=== PATIENT | male | born 1935 | race Caucasian/White ===

== ENCOUNTER → 2021-03-10 13:41 | Outpatient (CLI) | payer MEDICARE, SELFPAY ==
--- NOTE | 2021-03-10 15:09 | NEURO ---
NCS and/or EMG Patient Report Ordering Doctor: Brook Gibson DATE OF SERVICE: 03/10/21 Indication: Tingling and burning intermittently in the fingers of the right hand. Evaluate for entrapment neuropathy. Findings: Nerve conduction studies were performed in the right upper extremity. The right median motor study recording the abductor pollicis brevis showed a normal amplitude, normal distal latency and normal conduction velocity. The right ulnar motor study recording the abductor digiti minimi showed a normal amplitude, normal distal latency and normal conduction velocity. No conduction block or focal slowing was present across the elbow. The right median sensory response recording digit two showed a normal amplitude, latency and conduction velocity. The right ulnar sensory response recording digit five showed a normal amplitude, latency and conduction velocity. The right radial sensory response recording over the extensor snuff box showed a normal amplitude, latency and conduction velocity. Right median-ulnar lumbrical / interosseous motor latencies showed a normal median latency compared to the ulnar. Needle EMG of the right upper extremity muscles was performed. No denervation was seen in any muscle. Motor units in the right abductor pollicis brevis were slightly large amplitude and long duration with normal recuitment. All other motor unit morphology, activation and recruitment patterns were normal. Impression: This is an abnormal study. 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 These findings are compatible with the clinical diagnosis of carpal tunnel syndrome. Jimmy Barron D.O. [employer] Neurology Neurology Interp Codes: 51020-93 Musc tst done w/nerv tst oleary (interp) and 53416-84 Nr cndj test 7-8 studies (interp)
== END ==
PROVIDERS: PCP Internal Medicine; Referring Provider Internal Medicine; Visit Provider Internal Medicine
DX: R20.0 Anesthesia of skin (principal); R20.2 Paresthesia of skin
CPT/HCPCS: 95885; 95910